=== PATIENT | female | born 1940 | race Caucasian/White ===

== ENCOUNTER 2018-04-08 15:06 | Emergency (ER) | payer OTHER, BC ==
[~2018-04-08] VITALS: Ht 152.4 cm; Wt 56.0 kg
[2018-04-08] MEDS ORDERED: AUGMENTIN875 MG PO (18:29)
[2018-04-08 18:35] VITALS: BP 113/66
== END 2018-04-08 18:47 | disposition home or self-care (01) ==
LOC: EME 15:06
PROC: 3E0234Z Introduction of Serum, Toxoid and Vaccine into Muscle, Percutaneous Approach (ICD-10-PCS; principal; 2018-04-08)
DX: S51.851A Open bite of right forearm, initial encounter (principal); S81.852A Open bite, left lower leg, initial encounter; S81.851A Open bite, right lower leg, initial encounter; W55.51XA Bitten by raccoon, initial encounter; Z23 Encounter for immunization; Z29.14 Encounter for prophylactic rabies immune globulin
CPT/HCPCS: 99281; 99284

== ENCOUNTER 2018-04-10 11:35 | Emergency (ER) | payer OTHER, BC ==
[~2018-04-10] VITALS: Ht 152.4 cm; Wt 56.1 kg
[~2018-04-10 11:35] MED LIST: AUGMENTIN875 MG PO
[2018-04-10 17:13] VITALS: BP 180/79
== END 2018-04-10 17:13 | disposition home or self-care (01) ==
LOC: EME 11:35
PROC: 3E0234Z Introduction of Serum, Toxoid and Vaccine into Muscle, Percutaneous Approach (ICD-10-PCS; principal; 2018-04-10)
DX: Z29.14 Encounter for prophylactic rabies immune globulin (principal); Z20.3 Contact with and (suspected) exposure to rabies
CPT/HCPCS: 99281; 99283

== ENCOUNTER 2018-04-13 08:35 | Emergency (ER) | payer OTHER, BC ==
[~2018-04-13] VITALS: Ht 152.4 cm; Wt 55.8 kg
[2018-04-13 08:40] VITALS: BP 131/82
== END 2018-04-13 09:54 | disposition home or self-care (01) ==
LOC: EME 08:35
PROC: 3E0234Z Introduction of Serum, Toxoid and Vaccine into Muscle, Percutaneous Approach (ICD-10-PCS; principal; 2018-04-13)
DX: S81.851D Open bite, right lower leg, subsequent encounter (principal); S81.852D Open bite, left lower leg, subsequent encounter; S51.851D Open bite of right forearm, subsequent encounter; W55.51XD Bitten by raccoon, subsequent encounter; Z23 Encounter for immunization
CPT/HCPCS: 99281; 99284